=== PATIENT | male | born 1940 | race Hispanic/Latino ===

== ENCOUNTER 2018-03-30 15:01 | Observation (INO) | payer MEDICARE ==
--- NOTE | 2018-03-30 15:52 | ED PDOC ---
Syncope/Near Syncope/Dizziness Time Seen by Provider: 03/30/18 15:42 Chief Complaint (Nursing): Dizziness/Lightheaded History Per: Family Onset/Duration Of Symptoms: Days (1) Current Symptoms Are (Timing): Better Activity At Onset Of Symptoms: Sitting Associated Symptoms Preceding Syncopal Episode: No Predromal Symptoms (Sudden Onset) Seizure Or Post-ictal Symptoms: None Fall Associated With With Symptoms: No Additional Complaint(s): Referred by PMD, states pt experienced episode of lightheadedness, became pale and diaphoretic. Leaned forward on table ? LOC. Pt denies chest pain or palpitations. No focal weakness. Past Medical History Vital Signs: Last Vital Signs Temp 97.1 F L 03/30/18 15:07 Pulse 82 03/30/18 15:07 Resp 18 03/30/18 15:07 BP 199/94 H 03/30/18 15:07 Pulse Ox 97 03/30/18 15:07 - Medical History PMH: Dementia, Hypercholesterolemia Denies: Chronic Kidney Disease - Family History Family History: States: Unknown Family Hx - Allergies Allergies/Adverse Reactions: Allergies Allergy/AdvReac Type Severity Reaction Status Date / Time No Known Allergies Allergy Verified 03/30/18 15:14 Review of Systems ROS Statement: Except As Marked, All Systems Reviewed And Found Negative Neurological: Positive for: Dizziness Physical Exam - Reviewed Nursing Documentation Reviewed: Yes Vital Signs Reviewed: Yes - Physical Exam Appears: Positive for: Non-toxic, No Acute Distress Head Exam: Positive for: ATRAUMATIC, NORMAL INSPECTION, NORMOCEPHALIC Skin: Positive for: Normal Color, Warm, DRY Eye Exam: Positive for: EOMI, Normal appearance, PERRL ENT: Positive for: Normal ENT Inspection Neck: Positive for: Normal, Painless ROM Cardiovascular/Chest: Positive for: Regular Rate, Rhythm Respiratory: Positive for: CNT, Normal Breath Sounds Gastrointestinal/Abdominal: Positive for: Normal Exam, Soft Back: Positive for: Normal Inspection Extremity: Positive for: Normal ROM Neurologic/Psych: Positive for: Alert, Oriented - Laboratory Results Result Diagrams: 03/30/18 16:12 03/30/18 16:12 - ECG O2 Sat by Pulse Oximetry: 97 Disposition - Clinical Impression Clinical Impression: Syncope, Hydrocephalus - Patient ED Disposition Is Patient to be Admitted: Yes - Disposition Disposition Time: 17:28 Condition: FAIR Forms: [facility] ([place]i) - Pt Status Changed To: Hospital Disposition Of: Observation - POA Present On Arrival: None
[2018-03-30 16:31] LABS: BASO # 0.1 K/uL (0.0-0.2); BASO % 0.7 % (0.0-2.0); EOS # 0.1 K/uL (0.0-0.7); EOS % 0.9 % (0.0-4.0); HEMOGLOBIN 13.4 g/dL (12.0-18.0); LYMPH # 1.3 K/uL (1.0-4.3); MEAN CORPUSCULAR HEMOGLOBIN 28.7 pg (27.0-31.0); MEAN CORPUSCULAR HGB CONC 33.7 g/dL (33.0-37.0); MEAN PLATELET VOLUME 7.8 fl (7.2-11.7); MONO # 0.5 K/uL (0.0-0.8); MONO % 6.1 % (0.0-10.0); NEUT # 6.6 K/uL (1.8-7.0); NEUT % 77.3 % (50.0-75.0); RBC 4.68 Mil/uL (4.40-5.90); RED CELL DISTRIBUTION WIDTH 13.9 % (11.5-14.5); WHITE BLOOD COUNT 8.5 K/uL (4.8-10.8)
[2018-03-30 16:45] LABS: ALB/GLOB RATIO 1.4 (1.0-2.1); ALBUMIN 4.2 g/dL (3.5-5.0); ALT/SGPT 36 U/L (21-72); AST/SGOT 32 U/L (17-59); BLOOD UREA NITROGEN 21 mg/dl (9-20); CALCIUM 9.5 mg/dL (8.4-10.2); GFR NON-AFRICAN AMERICAN > 60
--- NOTE | 2018-03-30 16:56 | CT ---
Date of service: 03/30/2018 PROCEDURE: CT HEAD WITHOUT CONTRAST. HISTORY: Near syncopal. COMPARISON: None available. TECHNIQUE: Axial computed tomography images were obtained through the head/brain without intravenous contrast. Supplemental Coronal and Sagittal projections created and reviewed. Radiation dose: Total exam DLP = 827.88 mGy-cm. This CT exam was performed using one or more of the following dose reduction techniques: Automated exposure control, adjustment of the mA and/or kV according to patient size, and/or use of iterative reconstruction technique. FINDINGS: HEMORRHAGE: No intracranial hemorrhage. BRAIN: No mass effect or edema. No atrophy or chronic microvascular ischemic changes. VENTRICLES: Disproportionate dilatation ventricles relative cortical sulci. No obstructing lesion identified. Lateral ventricles including temporal components, 3rd and 4th ventricles are widely. CALVARIUM: Unremarkable. PARANASAL SINUSES: Chronic ethmoid and frontal sinus disease. MASTOID AIR CELLS: Unremarkable as visualized. No inflammatory changes. OTHER FINDINGS: None. IMPRESSION: Communicating hydrocephalus. No intrinsic or extrinsic abnormalities identified . in the appropriate clinical setting normal pressure hydrocephalus should be considered.
--- NOTE | 2018-03-31 07:53 | CARD ---
APPROVED REPORT Date of service: 03/31/2018 EKG Measurement Heart [id number] LA 130P34 [id number] <Conclusion> Normal sinus rhythm ST & T wave abnormality, consider inferolateral ischemia Abnormal ECG
--- NOTE | 2018-03-31 08:02 | CARD ---
APPROVED REPORT Date of service: 03/30/2018 EKG Measurement Heart [id number] OR 158P43 [id number] <Conclusion> Sinus rhythm with premature supraventricular complexes Nonspecific ST and T wave abnormality Abnormal ECG
[2018-03-31] MEDS ORDERED: VIT B6 PO SCH (09:00)
[2018-03-31] MEDS ORDERED: B2 PO SCH (09:00)
[2018-03-31] MEDS ORDERED: Enoxaparin 40 mg Syringe SC SCH (09:00)
[2018-03-31] MEDS ORDERED: VIT B12 PO SCH (09:00)
[2018-03-31] MEDS ORDERED: LEVOMEFOLATE PO SCH (09:00)
--- NOTE | 2018-03-31 13:04 | CP.PCM.HP ---
History of Present Illness - History of Present Illness History of Present Illness: 72 y/o male with hx of hyper cholesterol, htn, dementia. He presented in ER after an episode of lightheadedness, became pale and diaphoretic. Leaned forward on table. He denies any CP SOB, palpitations. Present on Admission - Present on Admission Any Indicators Present on Admission: No Review of Systems - Constitutional Constitutional: Weakness - EENT Eyes: As Per HPI Nose/Mouth/Throat: As Per HPI - Cardiovascular Cardiovascular: Syncope - Respiratory Respiratory: As Per HPI - Gastrointestinal Gastrointestinal: As Per HPI - Musculoskeletal Musculoskeletal: As Per HPI - Integumentary Integumentary: As Per HPI - Neurological Neurological: As Per HPI - Psychiatric Psychiatric: As Per HPI - Endocrine Endocrine: As Per HPI Past Patient History - Past Medical History & Family History Past Medical History?: Yes - Past Social History Smoking Status: Never Smoked - CARDIAC Hx Cardiac Disorders: Yes Hx Hypercholesterolemia: Yes - PULMONARY Hx Respiratory Disorders: No - NEUROLOGICAL Hx Neurological Disorder: Yes Hx Dementia: Yes - HEENT Hx HEENT Problems: No - RENAL Hx Chronic Kidney Disease: No - ENDOCRINE/METABOLIC Hx Endocrine Disorders: No - HEMATOLOGICAL/ONCOLOGICAL Hx Blood Disorders: No - INTEGUMENTARY Hx Dermatological Problems: No - MUSCULOSKELETAL/RHEUMATOLOGICAL Hx Musculoskeletal Disorders: No Hx Falls: No - GASTROINTESTINAL Hx Gastrointestinal Disorders: No - GENITOURINARY/GYNECOLOGICAL Hx Genitourinary Disorders: No - PSYCHIATRIC Hx Psychophysiologic Disorder: No Hx Substance Use: No - SURGICAL HISTORY Hx Surgeries: No - ANESTHESIA Hx Anesthesia: No Hx Anesthesia Reactions: No Hx Malignant Hyperthermia: No Has any member of the family had a problem w/ anesthesia?: No Meds Allergies/Adverse Reactions: Allergies Allergy/AdvReac Type Severity Reaction Status Date / Time No Known Allergies Allergy Verified 03/30/18 15:14 Physical Exam - Constitutional Appears: Non-toxic - Head Exam Head Exam: ATRAUMATIC, NORMAL INSPECTION, NORMOCEPHALIC - Eye Exam Eye Exam: Normal appearance - ENT Exam ENT Exam: Mucous Membranes Moist - Neck Exam Neck exam: Positive for: Full Rom - Respiratory Exam Respiratory Exam: Clear to Auscultation Bilateral - Cardiovascular Exam Cardiovascular Exam: REGULAR RHYTHM, +S1, +S2 - GI/Abdominal Exam GI & Abdominal Exam: Normal Bowel Sounds - Extremities Exam Extremities exam: Positive for: normal inspection - Neurological Exam Neurological exam: Altered, CN II-XII Intact, Oriented x3 Additional comments: confuse - Psychiatric Exam Psychiatric exam: Flat Affect - Skin Skin Exam: Normal Color Results - Vital Signs Recent Vital Signs: Last Vital Signs Temp 97.3 F L 03/31/18 12:03 Pulse 60 03/31/18 12:03 Resp 18 03/31/18 12:03 BP 118/74 03/31/18 12:03 Pulse Ox 97 03/31/18 12:03 - Labs Result Diagrams: 03/30/18 16:12 03/30/18 16:12 Labs: Laboratory Results - last 24 hr 03/30/18 03/30/18 03/30/18 16:12 16:12 17:29 WBC 8.5 RBC 4.68 Hgb 13.4 Hct 39.8 MCV 85.0 MCH 28.7 MCHC 33.7 RDW 13.9 Plt Count 198 MPV 7.8 Neut % (Auto) 77.3 H Lymph % (Auto) 15.0 L [place] % (Auto) 6.1 Eos % (Auto) 0.9 Baso % (Auto) 0.7 Neut # (Auto) 6.6 Lymph # (Auto) 1.3 [place] # (Auto) 0.5 Eos # (Auto) 0.1 Baso # (Auto) 0.1 Sodium 141 Potassium 3.9 Chloride 105 Carbon Dioxide 28 Anion Gap 12 BUN 21 H Creatinine 0.9 Est GFR ( Amer) > 60 Est GFR (Non-Af Amer) > 60 Random Glucose 119 H Hemoglobin A1c 5.9 Calcium 9.5 Magnesium Total Bilirubin 0.5 AST 32 ALT 36 Alkaline Phosphatase 68 Troponin I < 0.0120 Total Protein 7.1 Albumin 4.2 Globulin 2.9 Albumin/Globulin Ratio 1.4 TSH 3rd Generation Cortisol AM Sample 03/30/18 03/31/18 20:40 04:25 WBC RBC Hgb Hct MCV MCH MCHC RDW Plt Count MPV Neut % (Auto) Lymph % (Auto) [place] % (Auto) Eos % (Auto) Baso % (Auto) Neut # (Auto) Lymph # (Auto) [place] # (Auto) Eos # (Auto) Baso # (Auto) Sodium Potassium Chloride Carbon Dioxide Anion Gap BUN Creatinine Est GFR ( Amer) Est GFR (Non-Af Amer) Random Glucose Hemoglobin A1c Calcium Magnesium 1.9 Total Bilirubin AST ALT Alkaline Phosphatase Troponin I < 0.0120 Total Protein Albumin Globulin Albumin/Globulin Ratio TSH 3rd Generation 1.77 Cortisol AM Sample 10.4 Assessment & Plan (1) Dementia Status: Chronic (2) Hypertensive cardiovascular disease Status: Chronic (3) Hydrocephalus Status: Acute (4) Syncope Status: Acute (5) Hypercholesteremia Status: Chronic - Assessment and Plan (Free Text) Plan: as per orders.
--- NOTE | 2018-03-31 20:53 | CARD ---
APPROVED REPORT Date of service: 03/31/2018 EXAM: Two-dimensional and M-mode echocardiogram with Doppler and color Doppler. Other Information Quality : GoodRhythm : NSR INDICATION Syncope 2D DIMENSIONS IVSd1.13 (0.7-1.1cm)LVDd4.62 (3.9-5.9cm) LVOT Diameter1.87 (1.8-2.4cm)PWd0.98 (0.7-1.1cm) IVSs1.49 (0.8-1.2cm)LVDs2.97 (2.5-4.0cm) FS (%) 35.7 %PWs1.37 (0.8-1.2cm) M-Mode DIMENSIONS Left Atrium (MM)5.59 (2.5-4.0cm)IVSd1.38 (0.7-1.1cm) Aortic Root3.06 (2.2-3.7cm)LVDd5.12 (4.0-5.6cm) Aortic Cusp Exc.2.21 (1.5-2.0cm)PWd1.15 (0.7-1.1cm) IVSs1.82 cmFS (%) 49 % LVDs2.62 (2.0-3.8cm)PWs1.85 cm Aortic Valve AoV Peak Kfrzqngq949.7cm/sAoV VTI25.5cmAO Peak GR.9mmHg LVOT Peak Wtuguhwu20.3cm/sLVOT VTI20.76cmAO Mean GR.5mmHg MAYRA (VMAX)0.54cj9AVQ (VTI)1.39ys7BF P 1/2 Dvhb765ao Mitral Valve MV E Pvgnknxe43.7cm/sMV DECEL KLKF627zwFD A Qnlwfmdt11.0cm/s MV OAJ78djX/A ratio1.0MVA (PHT)3.77cm2 TDI Lateral E' Peak V8.56cm/sMedial E' Peak V6.36cm/sE/Lateral E'6.6 E/Medial E'8.9 LEFT VENTRICLE The left ventricle is normal size. There is normal left ventricular wall thickness. The left ventricular systolic function is normal. The estimated ejection fraction is 60-65% No regional wall motion abnormalities noted.. Transmitral Doppler flow pattern is Grade II-pseudonormal filling dynamics. No left ventricle thrombus noted on this study. There is no ventricular septal defect visualized. There is no left ventricular aneurysm. There is no mass noted in the left ventricle. RIGHT VENTRICLE The right ventricle is normal size. There is normal right ventricular wall thickness. The right ventricular systolic function is normal. ATRIA The left atrium is mild to moderately dilated. The right atrium size is normal. The interatrial septum is intact with no evidence for an atrial septal defect. AORTIC VALVE The aortic valve is normal in structure. Mild to moderate aortic regurgitation is present. There is no aortic valvular stenosis. There is no aortic valvular vegetation. MITRAL VALVE The mitral valve is normal in structure. There is no evidence of mitral valve prolapse. There is no mitral valve stenosis. There is mild mitral valve regurgitation noted. TRICUSPID VALVE The tricuspid valve is normal in structure. There is mild tricuspid valve regurgitation noted. There is no tricuspid valve prolapse or vegetation. There is no tricuspid valve stenosis. PULMONIC VALVE The pulmonary valve is normal in structure. There is no pulmonic valvular regurgitation. There is no pulmonic valvular stenosis. GREAT VESSELS The aortic root is normal in size. The ascending aorta is normal in size. The pulmonary artery is normal. The IVC is normal in size and collapses >50% with inspiration. PERICARDIAL EFFUSION There is no pericardial effusion. There is no pleural effusion. <Conclusion> The estimated ejection fraction is 60-65% Transmitral Doppler flow pattern is Grade II-pseudonormal filling dynamics. The left atrium is mild to moderately dilated. Mild to moderate aortic regurgitation is present. There is mild mitral valve regurgitation noted. There is mild tricuspid valve regurgitation noted. The IVC is normal in size and collapses >50% with inspiration.
--- NOTE | 2018-03-31 23:28 | CP.PCM.CON ---
History of Present Illness - History of Present Illness History of Present Illness: Neurology consult called by Dr. Blancas for patient who, as per chart is : 72 y/o male with hx of hyper cholesterol, htn, dementia. He presented in ER after an episode of lightheadedness, became pale and diaphoretic. Leaned forward on table. He denies any CP SOB, palpitations. He has never had any prior spells, no headache, no other issues. Today on exam he has no complaints and is ready for discharge. Syncope workup is underway. ROs; negative PMH/PSH: as above FH/SH: , no tobacco, occasional etoh. All: nkda ON exam: Normal neurological exam. Past Patient History - Past Medical History & Family History Past Medical History?: Yes - Past Social History Smoking Status: Never Smoked - CARDIAC Hx Cardiac Disorders: Yes Hx Hypercholesterolemia: Yes - PULMONARY Hx Respiratory Disorders: No - NEUROLOGICAL Hx Neurological Disorder: Yes Hx Dementia: Yes - HEENT Hx HEENT Problems: No - RENAL Hx Chronic Kidney Disease: No - ENDOCRINE/METABOLIC Hx Endocrine Disorders: No - HEMATOLOGICAL/ONCOLOGICAL Hx Blood Disorders: No - INTEGUMENTARY Hx Dermatological Problems: No - MUSCULOSKELETAL/RHEUMATOLOGICAL Hx Musculoskeletal Disorders: No Hx Falls: No - GASTROINTESTINAL Hx Gastrointestinal Disorders: No - GENITOURINARY/GYNECOLOGICAL Hx Genitourinary Disorders: No - PSYCHIATRIC Hx Psychophysiologic Disorder: No Hx Substance Use: No - SURGICAL HISTORY Hx Surgeries: No - ANESTHESIA Hx Anesthesia: No Hx Anesthesia Reactions: No Hx Malignant Hyperthermia: No Has any member of the family had a problem w/ anesthesia?: No Meds Allergies/Adverse Reactions: Allergies Allergy/AdvReac Type Severity Reaction Status Date / Time No Known Allergies Allergy Verified 03/30/18 15:14 - Medications Medications: Current Medications Atorvastatin Calcium (Lipitor) 20 mg PO HS [facility] Last Admin: 03/31/18 21:50 Dose: 20 mg Donepezil HCl (Aricept) 10 mg PO HS [facility] Last Admin: 03/31/18 21:50 Dose: 10 mg Enoxaparin Sodium (Lovenox) 40 mg SC DAILY [facility]; Protocol Last Admin: 03/31/18 08:34 Dose: 40 mg Home Med (Vit B12/Levomefolate/Vit B6/B2 [Cerefolin Caplet]) 1 tab PO DAILY [facility] Memantine (Namenda) 10 mg PO Q12 [facility] Last Admin: 03/31/18 21:50 Dose: 10 mg Results - Vital Signs Recent Vital Signs: Last Vital Signs Temp 97.5 F L 03/31/18 20:00 Pulse 68 03/31/18 21:00 Resp 16 03/31/18 20:00 BP 129/74 03/31/18 20:00 Pulse Ox 97 03/31/18 20:00 - Labs Result Diagrams: 03/30/18 16:12 03/30/18 16:12 Labs: Laboratory Results - last 24 hr 03/30/18 03/30/18 03/30/18 17:29 20:40 20:40 Hemoglobin A1c 5.9 Magnesium 1.9 TSH 3rd Generation 1.77 Cortisol AM Sample RPR Nonreactive 03/31/18 04:25 Hemoglobin A1c Magnesium TSH 3rd Generation Cortisol AM Sample 10.4 RPR Assessment & Plan - Assessment and Plan (Free Text) Assessment: Ct head: shows communicating hydrocephalus A/p: 77 yr old male with communicating hydrocephalus who will need MRI brain with contrast and neurosurgical consult. we will follow Dr Lewis
[2018-04-01] MEDS ORDERED: Gadodiamide 287 MG/ML VIAL (15ML) IV ONE ×2 (07:53→08:28)
[2018-04-01 07:56] VITALS: RESP 18
--- NOTE | 2018-04-01 10:51 | CP.PCM.PN ---
Subjective - Date & Time of Evaluation Date of Evaluation: 04/01/18 Time of Evaluation: 10:50 - Subjective Subjective: 72 y/o male with hx of hyper cholesterol, htn, dementia. He presented in ER after an episode of lightheadedness, became pale and diaphoretic. Leaned forward on table. He denies any CP SOB, palpitations. He has never had any prior spells, no headache, no other issues. MR shows comm hydrocephalus need to discuss with family treatment options will contact family and arrange a meeting Pt can be d/c home in interim Objective - Vital Signs/Intake and Output Vital Signs (last 24 hours): Temp Pulse Resp BP Pulse Ox 97.7 F 80 18 160/82 H 98 04/01/18 07:55 04/01/18 09:00 04/01/18 07:55 04/01/18 07:55 04/01/18 07:55 - Medications Medications: Current Medications Atorvastatin Calcium (Lipitor) 20 mg PO HS [facility] Last Admin: 03/31/18 21:50 Dose: 20 mg Donepezil HCl (Aricept) 10 mg PO HS [facility] Last Admin: 03/31/18 21:50 Dose: 10 mg Enoxaparin Sodium (Lovenox) 40 mg SC DAILY [facility]; Protocol Last Admin: 03/31/18 08:34 Dose: 40 mg Home Med (Vit B12/Levomefolate/Vit B6/B2 [Cerefolin Caplet]) 1 tab PO DAILY [facility] Memantine (Namenda) 10 mg PO Q12 [facility] Last Admin: 04/01/18 08:16 Dose: 10 mg - Labs Labs: 03/30/18 16:12 03/30/18 16:12
--- NOTE | 2018-04-01 11:43 | CP.PCM.PN ---
Subjective - Date & Time of Evaluation Date of Evaluation: 04/01/18 Time of Evaluation: 11:39 - Subjective Subjective: Neuro Follow-Up Note: Mr. Fox was evaluated this morning sitting OOB to chair. He states that he feels good and is ready to go home today. Was seen by neurosurgery this morning. Pt denies any h/a, dizziness, visual changes, chest pain, palpitations, sob, cough, abd pain, n/v/d. Chart reviewed. Objective - Vital Signs/Intake and Output Vital Signs (last 24 hours): Temp Pulse Resp BP Pulse Ox 97.7 F 80 18 160/82 H 98 04/01/18 07:55 04/01/18 09:00 04/01/18 07:55 04/01/18 07:55 04/01/18 07:55 - Medications Medications: Current Medications Atorvastatin Calcium (Lipitor) 20 mg PO HS [facility] Last Admin: 03/31/18 21:50 Dose: 20 mg Donepezil HCl (Aricept) 10 mg PO [facility] Last Admin: 03/31/18 21:50 Dose: 10 mg Enoxaparin Sodium (Lovenox) 40 mg SC DAILY [facility]; Protocol Last Admin: 03/31/18 08:34 Dose: 40 mg Home Med (Vit B12/Levomefolate/Vit B6/B2 [Cerefolin Caplet]) 1 tab PO DAILY [facility] Memantine (Namenda) 10 mg PO Q12 [facility] Last Admin: 04/01/18 08:16 Dose: 10 mg - Labs Labs: 03/30/18 16:12 03/30/18 16:12 - Constitutional Appears: Well, Non-toxic, No Acute Distress - Head Exam Head Exam: ATRAUMATIC, NORMAL INSPECTION, NORMOCEPHALIC - Eye Exam Eye Exam: EOMI, Normal appearance, PERRL Pupil Exam: NORMAL ACCOMODATION, PERRL - ENT Exam ENT Exam: Mucous Membranes Moist - Neck Exam Neck Exam: Full ROM, Normal Inspection - Respiratory Exam Respiratory Exam: NORMAL BREATHING PATTERN - GI/Abdominal Exam GI & Abdominal Exam: Soft - Extremities Exam Extremities Exam: Full ROM. absent: Calf Tenderness, Pedal Edema - Back Exam Back Exam: Full ROM - Neurological Exam Neurological Exam: Alert, Awake, CN II-XII Intact, Normal Gait, Oriented x3, Reflexes Normal Neuro motor strength exam: Left Upper Extremity: 5, Right Upper Extremity: 5, Left Lower Extremity: 5, Right Lower Extremity: 5 Additional comments: Speech clear, fluid Strength equal b/l Sensation intact b/l No tremors - Psychiatric Exam Psychiatric exam: Normal Affect, Normal Mood - Skin Skin Exam: Normal Color Assessment and Plan (1) Hydrocephalus Assessment & Plan: Imaging reviewed: -CT Head (03/30/18): shows communicating hydrocephalus -Brain MRI (04/01/18): pending results Mr. Fox is doing well neurologically. He has no deficits. He had a syncopal episode which prompted his visit to the hospital. Since being admitted he is stable. At this time he is pending the results of the Brain MRI. He was already evaluated by neurosurgery this morning who reviewed the imaging and cleared the pt for d/c home today. Mr. Fox may be d/c home if there is no mass on the MRI or infarct (pending final report). He is to f/u with neurosurgery in the office within 5-7 days to discuss outpatient treatment of his hydrocephalus and possible PUBLIC HEALTH STAFF NURSE shunt if pt and family agree. Reconsult neuro team prn and notify us for any abnormal MRI result. Thank you for allowing us to participate in this patient's care. Discussed with Dr. Choudhary Status: Acute
[2018-04-01 12:05] VITALS: BP 142/82; PULSE 72; TEMP 98; O2SAT 96
--- NOTE | 2018-04-01 12:52 | CP.PCM.PN ---
Subjective - Date & Time of Evaluation Date of Evaluation: 04/01/18 Time of Evaluation: 12:53 - Subjective Subjective: Patient hemo dynamically and neurological stable. No new c/o denies and CP, SOB, weakness, v/n, abd pain, syncope. Neuo and neurosurgery consult appreciated. Will DC home with f/u with neurology and neurosurgery specialists. Objective - Vital Signs/Intake and Output Vital Signs (last 24 hours): Temp Pulse Resp BP Pulse Ox 98 F 72 18 142/82 96 04/01/18 12:04 04/01/18 12:04 04/01/18 12:04 04/01/18 12:04 04/01/18 12:04 - Medications Medications: Current Medications Atorvastatin Calcium (Lipitor) 20 mg PO HS [facility] Last Admin: 03/31/18 21:50 Dose: 20 mg Donepezil HCl (Aricept) 10 mg PO [facility] Last Admin: 03/31/18 21:50 Dose: 10 mg Enoxaparin Sodium (Lovenox) 40 mg SC DAILY [facility]; Protocol Last Admin: 03/31/18 08:34 Dose: 40 mg Home Med (Vit B12/Levomefolate/Vit B6/B2 [Cerefolin Caplet]) 1 tab PO DAILY [facility] Memantine (Namenda) 10 mg PO Q12 [facility] Last Admin: 04/01/18 08:16 Dose: 10 mg - Labs Labs: 03/30/18 16:12 03/30/18 16:12 - Constitutional Appears: Well - Head Exam Head Exam: ATRAUMATIC, NORMAL INSPECTION, NORMOCEPHALIC - Eye Exam Eye Exam: Normal appearance Pupil Exam: PERRL - ENT Exam ENT Exam: Mucous Membranes Moist - Neck Exam Neck Exam: Full ROM - Respiratory Exam Respiratory Exam: Clear to Ausculation Bilateral - Cardiovascular Exam Cardiovascular Exam: REGULAR RHYTHM, +S1, +S2 - GI/Abdominal Exam GI & Abdominal Exam: Soft, Normal Bowel Sounds - Back Exam Back Exam: NORMAL INSPECTION - Neurological Exam Neurological Exam: Alert, Awake, CN II-XII Intact, Normal Gait, Oriented x3 - Psychiatric Exam Psychiatric exam: Normal Affect - Skin Skin Exam: Normal Color Assessment and Plan (1) Dementia Status: Chronic (2) Hypertensive cardiovascular disease Status: Chronic (3) Hydrocephalus Status: Chronic (4) Syncope Status: Resolved (5) Hypercholesteremia Status: Chronic - Assessment and Plan (Free Text) Plan: As above
--- NOTE | 2018-04-01 16:54 | MRI ---
Date of service: 04/01/2018 PROCEDURE: MRI BRAIN WITH AND WITHOUT CONTRAST HISTORY: hydrocephalus COMPARISON: None available. TECHNIQUE: Multiplanar, multisequence MR images of the brain were obtained with and without intravenous contrast enhancement. FINDINGS: HEMORRHAGE: None DWI: No evidence of an acute or early subacute infarction. BRAIN PARENCHYMA: Good corticomedullary differentiation is seen. Proportional, diffuse expansion of the ventriculosulcal and cisternal spaces is appreciated with white matter lucency compatible with diffuse cerebral atrophy and chronic microangiopathy. However, as seen in the prior noncontrast head CT 03/30/2018, the ratio volume of the ventricular system compared to dilatation of the sulci and cisterns is rather prominent and suspicious for communicating hydrocephalus. All ventricles appear dilated. No suspicious extra-axial fluid collection is identified and the midline brain anatomy appears grossly nonfocal as imaged. There is no mass effect throughout. ENHANCEMENT: No abnormal intracranial enhancement. CRANIUM: Unremarkable. ORBITS: Grossly unremarkable. PARANASAL SINUSES/MASTOIDS: Clear VASCULAR SYSTEM: Skull base flow voids intact. OTHER FINDINGS: None . IMPRESSION: Findings again suggest communicating or normal pressure hydrocephalus. Central atrophy remains the differential diagnosis. No abnormal intracranial enhancement throughout the exam. Limited age-related neuro degenerative changes are identified.
== END 2018-04-01 14:59 | disposition home or self-care (01) ==
LOC: H.ER 15:01 → H.ERHOLD 17:29 → H.TEL 20:18
PROVIDERS: ADMIT Internal Medicine; ATTEND Internal Medicine
DX: R55 Syncope and collapse (principal); F03.90 Unspecified dementia, unspecified severity, without behavioral disturbance, psychotic disturbance, mood disturbance, and anxiety; E78.00 Pure hypercholesterolemia, unspecified; G91.0 Communicating hydrocephalus; I11.9 Hypertensive heart disease without heart failure
CPT/HCPCS: 36415; 70450; 70553; 80053; 82533; 83036; 83735; 84443; 84484; 85025; 86592; 93005; 93306; 96372; 99285; A9579; G0378; J1650